=== PATIENT | male | born 1965 | race African-American/Black ===

== ENCOUNTER 2016-05-28 06:00 | Emergency (ER) | payer MEDICAID ==
[~2016-05-28] VITALS: Ht 185.4 cm; Wt 86.4 kg
[~2016-05-28 06:00] MED LIST: CYCL10 PO
[2016-05-28] MEDS ORDERED: MET500 PO (06:06)
[2016-05-28] MEDS ORDERED: IBUPROFEN 600 MG TABLET PO ONE (07:00)
[2016-05-28 07:04] VITALS: BP 143/95
== END 2016-05-28 07:18 | disposition home or self-care (01) ==
LOC: EMS 06:01
DX: M54.5 Low back pain (principal); F12.90 Cannabis use, unspecified, uncomplicated; G89.29 Other chronic pain; F17.210 Nicotine dependence, cigarettes, uncomplicated
CPT/HCPCS: 99283

== ENCOUNTER 2016-06-24 05:55 | Emergency (ER) | payer MEDICAID ==
[~2016-06-24] VITALS: Ht 182.9 cm; Wt 84.1 kg
[~2016-06-24 05:55] MED LIST changes: +MET500 PO
[2016-06-24] MEDS ORDERED: CYCLOBENZAPRINE HCL 10 MG TABLET PO ONE (07:30)
[2016-06-24] MEDS ORDERED: KETOROLAC TROMETHAMINE 60 MG/2 ML VIAL IM ONE (07:30)
[2016-06-24 07:54] VITALS: BP 122/84
== END 2016-06-24 07:59 | disposition home or self-care (01) ==
LOC: EMS 05:56
DX: G89.29 Other chronic pain (principal); M54.5 Low back pain; F17.210 Nicotine dependence, cigarettes, uncomplicated; F12.90 Cannabis use, unspecified, uncomplicated
CPT/HCPCS: 96372; 99283; 99406; J1885

== ENCOUNTER 2017-02-09 01:48 | Emergency (ER) | payer MEDICAID ==
[~2017-02-09] VITALS: Ht 182.9 cm; Wt 88.6 kg
[2017-02-09] MEDS ORDERED: TraMADol HCL 50 MG TABLET PO ONE (02:30)
[2017-02-09] MEDS ORDERED: KETOROLAC TROMETHAMINE 60 MG/2 ML VIAL IM ONE (02:30)
[2017-02-09] MEDS ORDERED: CYCLOBENZAPRINE HCL 10 MG TABLET PO ONE (02:30)
[2017-02-09 03:15] VITALS: BP 110/86
== END 2017-02-09 03:39 | disposition home or self-care (01) ==
LOC: EMS 01:49
DX: M54.5 Low back pain (principal); I10 Essential (primary) hypertension; Z59.0 Homelessness; F17.210 Nicotine dependence, cigarettes, uncomplicated; F12.10 Cannabis abuse, uncomplicated
CPT/HCPCS: 96372; 99283; J1885

== ENCOUNTER 2017-03-19 02:59 | Emergency (ER) | payer MEDICAID ==
[~2017-03-19] VITALS: Ht 182.9 cm; Wt 84.1 kg
[2017-03-19] MEDS ORDERED: KETOROLAC TROMETHAMINE 30 MG/ML VIAL IM ONE (03:30)
[2017-03-19 04:02] VITALS: BP 122/69
== END 2017-03-19 04:04 | disposition home or self-care (01) ==
LOC: EMS 02:59
DX: M54.5 Low back pain (principal); G89.29 Other chronic pain; F17.210 Nicotine dependence, cigarettes, uncomplicated; F12.90 Cannabis use, unspecified, uncomplicated
CPT/HCPCS: 96372; 99283; J1885

== ENCOUNTER 2017-04-05 19:45 | Emergency (ER) | payer MEDICAID ==
[~2017-04-05] VITALS: Ht 182.9 cm; Wt 88.6 kg
[~2017-04-05 19:45] MED LIST changes: -MET500 PO
[2017-04-05] MEDS ORDERED: KETOROLAC TROMETHAMINE 30 MG/ML VIAL IM ONE (21:45)
[2017-04-05 22:21] VITALS: BP 135/88
== END 2017-04-05 22:38 | disposition home or self-care (01) ==
LOC: EMS 19:51
DX: M54.5 Low back pain (principal); G89.29 Other chronic pain; F17.210 Nicotine dependence, cigarettes, uncomplicated; F12.90 Cannabis use, unspecified, uncomplicated
CPT/HCPCS: 96372; 99283; J1885

== ENCOUNTER 2017-05-30 15:42 | Emergency (ER) | payer MEDICAID ==
[~2017-05-30] VITALS: Ht 182.9 cm; Wt 88.6 kg
[2017-05-30] MEDS ORDERED: KETOROLAC TROMETHAMINE 60 MG/2 ML VIAL IM ONE (16:30)
[2017-05-30 17:17] VITALS: BP 134/100
== END 2017-05-30 17:23 | disposition home or self-care (01) ==
LOC: EMS 15:43
DX: G89.29 Other chronic pain (principal); M54.5 Low back pain; F17.210 Nicotine dependence, cigarettes, uncomplicated; F12.10 Cannabis abuse, uncomplicated
CPT/HCPCS: 96372; 99283; J1885

== ENCOUNTER 2017-06-10 00:11 | Emergency (ER) | payer MEDICAID ==
[~2017-06-10] VITALS: Ht 182.9 cm; Wt 88.5 kg
[2017-06-10] MEDS ORDERED: KETOROLAC TROMETHAMINE 30 MG/ML VIAL IM ONE (01:00)
[2017-06-10 01:35] VITALS: BP 143/88
== END 2017-06-10 01:41 | disposition home or self-care (01) ==
LOC: EMS 00:12
DX: M54.5 Low back pain (principal); G89.29 Other chronic pain; F17.210 Nicotine dependence, cigarettes, uncomplicated; F12.90 Cannabis use, unspecified, uncomplicated
CPT/HCPCS: 96372; 99283; J1885

== ENCOUNTER 2017-09-03 02:38 | Emergency (ER) | payer MEDICAID ==
[~2017-09-03] VITALS: Ht 182.9 cm; Wt 86.4 kg
[2017-09-03] MEDS ORDERED: KETOROLAC TROMETHAMINE 30 MG/ML VIAL IM ONE (03:15)
[2017-09-03 04:58] VITALS: BP 129/71
== END 2017-09-03 05:05 | disposition home or self-care (01) ==
LOC: EMS 02:40
DX: M54.5 Low back pain (principal); G89.29 Other chronic pain; F17.210 Nicotine dependence, cigarettes, uncomplicated; F12.90 Cannabis use, unspecified, uncomplicated
CPT/HCPCS: 96372; 99283; J1885

== ENCOUNTER 2018-01-13 00:22 | Emergency (ER) | payer MEDICAID ==
[~2018-01-13] VITALS: Ht 182.9 cm; Wt 85.9 kg
[2018-01-13] MEDS ORDERED: ACET-66 PO (00:27)
[2018-01-13 00:37] VITALS: BP 151/98
[2018-01-13] MEDS ORDERED: KETOROLAC TROMETHAMINE 60 MG/2 ML VIAL IM ONE (01:00)
== END 2018-01-13 01:10 | disposition home or self-care (01) ==
LOC: EMS 00:23
DX: G89.29 Other chronic pain (principal); M54.5 Low back pain; F17.210 Nicotine dependence, cigarettes, uncomplicated; F12.90 Cannabis use, unspecified, uncomplicated; Z87.828 Personal history of other (healed) physical injury and trauma; Z79.899 Other long term (current) drug therapy
CPT/HCPCS: 96372; 99283; J1885

== ENCOUNTER 2018-02-17 12:59 | Emergency (ER) | payer MEDICAID ==
[~2018-02-17] VITALS: Ht 182.9 cm; Wt 85.9 kg
[~2018-02-17 12:59] MED LIST changes: +ACET-66 PO
[2018-02-17 13:45] VITALS: BP 120/85
[2018-02-17] MEDS ORDERED: CYCLOBENZAPRINE HCL 10 MG TABLET PO ONE (13:45)
[2018-02-17] MEDS ORDERED: KETOROLAC TROMETHAMINE 30 MG/ML VIAL IM ONE (13:45)
== END 2018-02-17 15:05 | disposition home or self-care (01) ==
LOC: EMS 13:00
DX: S13.9XXA Sprain of joints and ligaments of unspecified parts of neck, initial encounter (principal); S16.1XXA Strain of muscle, fascia and tendon at neck level, initial encounter; F17.210 Nicotine dependence, cigarettes, uncomplicated; F12.90 Cannabis use, unspecified, uncomplicated; Z79.899 Other long term (current) drug therapy; V43.52XA Car driver injured in collision with other type car in traffic accident, initial encounter; Y93.89 Activity, other specified; Y92.481 Parking lot as the place of occurrence of the external cause; Y99.8 Other external cause status
CPT/HCPCS: 96372; 99283; J1885

== ENCOUNTER 2018-03-07 04:07 | Emergency (ER) | payer MEDICAID ==
[~2018-03-07] VITALS: Ht 182.9 cm; Wt 86.0 kg
[2018-03-07 04:28] VITALS: BP 134/93
[2018-03-07] MEDS ORDERED: IBUPROFEN 800 MG TABLET PO ONE (04:30)
[2018-03-07] MEDS ORDERED: LIDOCAINE 5% TRANSDERMAL PATCH TD ONE (04:30)
[2018-03-07] MEDS ORDERED: IBUPROFEN 400 MG TABLET ONE (04:33)
[2018-03-07] MEDS ORDERED: IBUPROFEN 800 MG TABLET ONE (04:34)
== END 2018-03-07 05:16 | disposition home or self-care (01) ==
LOC: EMS 04:08
DX: G89.29 Other chronic pain (principal); M54.5 Low back pain; F12.90 Cannabis use, unspecified, uncomplicated; F17.210 Nicotine dependence, cigarettes, uncomplicated

== ENCOUNTER 2018-05-17 21:48 | Emergency (ER) | payer MEDICAID ==
[~2018-05-17] VITALS: Ht 182.9 cm; Wt 88.6 kg
[2018-05-17] MEDS ORDERED: INDO25 PO (22:26)
[2018-05-18 00:29] VITALS: BP 131/93
[2018-05-18] MEDS ORDERED: HYDROCODONE/ACETAMINOPHEN 5-325 MG TABLET PO ONE (00:45)
== END 2018-05-18 00:57 | disposition home or self-care (01) ==
LOC: EMS 21:49
DX: M54.16 Radiculopathy, lumbar region (principal); F20.9 Schizophrenia, unspecified; F17.210 Nicotine dependence, cigarettes, uncomplicated; F12.90 Cannabis use, unspecified, uncomplicated; G89.29 Other chronic pain

== ENCOUNTER 2018-06-06 20:16 | Emergency (ER) | payer MEDICAID ==
[~2018-06-06] VITALS: Ht 182.9 cm; Wt 100.0 kg
[~2018-06-06 20:16] MED LIST changes: +INDO25 PO
[2018-06-06 23:13] VITALS: BP 140/82
== END 2018-06-06 23:40 | disposition left against medical advice (07) ==
LOC: EMS 20:17
DX: G89.29 Other chronic pain (principal); M54.5 Low back pain; F20.9 Schizophrenia, unspecified; F12.90 Cannabis use, unspecified, uncomplicated; F17.210 Nicotine dependence, cigarettes, uncomplicated; Z79.899 Other long term (current) drug therapy

== ENCOUNTER 2018-10-15 14:12 | Emergency (ER) | payer MEDICAID ==
[~2018-10-15] VITALS: Ht 182.9 cm; Wt 88.6 kg
[2018-10-15 14:43] VITALS: BP 146/91
[2018-10-15] MEDS ORDERED: HYDROCODONE/ACETAMINOPHEN 5-325 MG TABLET PO ONE (15:00)
[2018-10-15] MEDS ORDERED: LIDOCAINE 5% TRANSDERMAL PATCH TD ONE (15:00)
== END 2018-10-15 15:24 | disposition home or self-care (01) ==
LOC: EMS 14:13
DX: G89.29 Other chronic pain (principal); M54.5 Low back pain; F12.90 Cannabis use, unspecified, uncomplicated; F17.210 Nicotine dependence, cigarettes, uncomplicated; F20.9 Schizophrenia, unspecified; Z79.899 Other long term (current) drug therapy
CPT/HCPCS: 99406

== ENCOUNTER 2018-11-29 00:45 | Emergency (ER) | payer MEDICAID ==
[~2018-11-29] VITALS: Ht 182.9 cm; Wt 81.8 kg
[~2018-11-29 00:45] MED LIST changes: +INDO-16 PO; -INDO25 PO
[2018-11-29 03:10] VITALS: BP 128/65
[2018-11-29] MEDS ORDERED: CYCLOBENZAPRINE HCL 10 MG TABLET PO ONE (03:15)
== END 2018-11-29 03:50 | disposition home or self-care (01) ==
LOC: EMS 00:46
DX: G89.29 Other chronic pain (principal); M54.5 Low back pain; F20.9 Schizophrenia, unspecified; F17.210 Nicotine dependence, cigarettes, uncomplicated; F12.90 Cannabis use, unspecified, uncomplicated; Z59.0 Homelessness

== ENCOUNTER 2021-12-19 17:50 | Emergency (ER) | payer MEDICAID ==
[~2021-12-19] VITALS: Ht 185.4 cm; Wt 86.4 kg
[2021-12-19] MEDS ORDERED: PERTUSS(ACELL),DIPH,TET VAC/PF 0.5 ML SYRINGE IM. ONE (19:15)
[2021-12-19 21:48] VITALS: BP 141/88
== END 2021-12-19 22:07 | disposition left against medical advice (07) ==
LOC: EMS 17:53
DX: T40.2X1A Poisoning by other opioids, accidental (unintentional), initial encounter (principal); S00.31XA Abrasion of nose, initial encounter; F17.210 Nicotine dependence, cigarettes, uncomplicated; X58.XXXA Exposure to other specified factors, initial encounter; Y93.89 Activity, other specified; Y92.89 Other specified places as the place of occurrence of the external cause; Y99.8 Other external cause status
CPT/HCPCS: 90715; 93005; 99283

== ENCOUNTER 2022-04-18 18:14 | Emergency (ER) | payer MEDICAID ==
[~2022-04-18] VITALS: Ht 177.8 cm; Wt 81.1 kg
[2022-04-18 19:49] VITALS: BP 135/91
[2022-04-18] MEDS ORDERED: KETOROLAC TROMETHAMINE 60 MG/2 ML VIAL IM ONE (21:00)
== END 2022-04-18 22:30 | disposition home or self-care (01) ==
LOC: EMS 18:16
DX: G89.29 Other chronic pain (principal); F20.9 Schizophrenia, unspecified; F17.210 Nicotine dependence, cigarettes, uncomplicated
CPT/HCPCS: 99283; 96372; J1885